=== PATIENT | female | born 1985 | race Caucasian/White ===

== ENCOUNTER 2024-01-13 14:26 | Outpatient (CLI) | payer BC, SELFPAY | END 2024-01-13 14:27 | disposition home or self-care (01) | LOC: NFLDREF 01-17 23:41 | PROVIDERS: Visit Provider Advanced Practice Midwife | DX: Z34.91 Encounter for supervision of normal pregnancy, unspecified, first trimester (principal); O09.521 Supervision of elderly multigravida, first trimester; Z3A.10 10 weeks gestation of pregnancy | CPT/HCPCS: 76801; 86592; 86703; 86704; 86706; 86762; 86787; 86803; 86850; 86900; 86901; 87086; 87340 ==

== ENCOUNTER 2024-03-16 10:12 | Outpatient (CLI) | payer BC, SELFPAY ==
--- NOTE | 2024-03-16 10:15 | CRLHL7_ITS ---
For Patients: As a result of the Century Cures Act, medical imaging exams and procedure reports are released immediately into your electronic medical record. You may view this report before your referring provider. If you have questions, please contact your health care provider. OBSTETRICAL ULTRASOUND LMP: 11/04/2023. LUCIEN by LMP: 07/31/2024. GA: 19 weeks 0 days. Gestation: Mackey. INDICATION: Survey. Advanced Maternal Age. Cervix: Visualized. Length of Closed Cervix: 4.0 cm. Position: Multiple Positions. Amniotic Fluid: 2.9 cm SDP (N: ? 2x 1 cm) Placenta Technique: TA. Placenta Position: Posterior. Placenta Tip to Internal Os: 2.9 cm. Umbilical Cord: 3-vessl cord. Placental Insertion: Marginal (1.8 cm). ANATOMY (Observed) Cerebellum: 1.9 cm, 19 weeks 2 days. Cisterna Magna: 6.7 mm. Nuchal Fold: 4.2 mm. Lateral Ventricles: 6.8 mm. CSP. Midline Falx. Choroid Plexus: Suboptimally Seen. Spine: Suboptimally Seen. Stomach Abdominal Cord Insertion. Urinary Bladder. Kidneys. Diaphragm: Suboptimally Seen. Nose/Lips. Orbital View. Profile. Upper/Lower Extremities: Hands: Suboptimally Seen. Feet. 4-Chamber Heart. LVOT/RVOT. 3VTV. BIOMETRY BPD: 4.6 cm, 20 weeks 0 days. HC: 16.9 cm, 19 weeks 4 days. AC: 15.7 cm, 20 weeks 6 days. FL: 3.0 cm, 19 weeks 3 days. FL/AC Ratio: 19.3 percent. HC/AC Ratio: 1.1. EFW: 332 grams, 0 pounds 12 ounces. Age by this US: 19 weeks 6 days. LUCIEN by this US: 08/04/2024. Percentile by LUCIEN: 95.7 percent. Heart Rate: 144 bpm. COMMENTS: Marginal cord insertion into the placenta is 1.8 cm from the edge of the placenta. There is a 0.8 x 0.8 x 0.6 cm left-sided choroid plexus cyst. The placenta edge to the internal os is 2.9 cm. IMPRESSION: 1. Single live intrauterine gestation. 2. There is a 0.8 cm left-sided choroid plexus cyst present. 3. There is otherwise no gross anomalies visualized; however, the spine, the diaphragm and hands are suboptimally seen. 4. Marginal cord insertion 1.8 cm from the edge of the placenta. Kinjal Haro M.D. Diagnostic/Breast Radiologist [email or web address] ACOSTA/leonard / DW/Dictated by: Kinjal Haro MD @ 03/18/2024 4:06:00 PM (Electronically Signed)
== END 2024-03-16 10:13 | disposition home or self-care (01) ==
LOC: US 10:13
PROVIDERS: Visit Provider Advanced Practice Midwife
DX: Z34.92 Encounter for supervision of normal pregnancy, unspecified, second trimester (principal); O35.03X0 Maternal care for (suspected) central nervous system malformation or damage in fetus, choroid plexus cysts, not applicable or unspecified; Z3A.19 19 weeks gestation of pregnancy
CPT/HCPCS: 76805

== ENCOUNTER 2024-05-11 09:58 | Outpatient (CLI) | payer BC, SELFPAY ==
--- NOTE | 2024-05-11 10:15 | CRLHL7_ITS ---
For Patients: As a result of the Century Cures Act, medical imaging exams and procedure reports are released immediately into your electronic medical record. You may view this report before your referring provider. If you have questions, please contact your health care provider. INDICATION: missing anatomy (hands, diaphragm, spine), marginal cord insertion, choroid plexus cyst, AMA COMPARISON: 03/16/2024 TECHNIQUE: Real time pablo scale imaging of the fetus was performed as well as color Doppler analysis of the umbilical vessels. FINDINGS/IMPRESSION: Sonographic imaging demonstrates a single living intrauterine gestation. Fetus demonstrates a regular cardiac rate of 149 beats per minute. Fetus has a vertex position. The placenta lies posterior. Amniotic fluid volume appears normal. Single deepest vertical pocket: 6.7 cm. The cervix is closed and measures 3.2 cm in length. The composite ultrasound gestational age is calculated at 28 weeks 4 days with an estimated sonographic due date of 07/30/2024. The estimated weight is 1250 grams which lies at the 93rd %. The following biometric measurements were obtained: Biparietal diameter: 7.0 cm/28 weeks 2 days 79th% Head circumference: 26.5 cm/28 weeks 6 days 81st% Abdominal circumference: 25.1 cm/29 weeks 2 days 95th% Femur length: 5.2 cm/27 weeks 4 days 51st% The HC/AC ratio measures: 1.06 range (1.00-1.21) Normal hands and diaphragm. Normal stomach and three-vessel cord. Normal bladder. Kidneys are unremarkable. Normal aortic arch, three-vessel view and IVC. No choroid plexus cyst. The cervical, thoracic and lumbar spine are well visualized and appear normal. Sonographic gestational age 28 weeks 4 days and sonographic due date of 07/30/2024. Sonographic age 11 days ahead of the clinical age. Dictated by Ashish Robbins MD @ 05/11/2024 11:20:13 AM (Electronically Signed)
== END 2024-05-11 09:59 | disposition home or self-care (01) ==
LOC: US 09:59
PROVIDERS: Visit Provider Advanced Practice Midwife
DX: O43.192 Other malformation of placenta, second trimester (principal); O09.522 Supervision of elderly multigravida, second trimester; Z3A.27 27 weeks gestation of pregnancy
CPT/HCPCS: 76816; 86592

== ENCOUNTER 2024-05-17 08:21 | Outpatient (CLI) | payer BC, SELFPAY | END 2024-05-17 08:22 | disposition home or self-care (01) | LOC: NFLDREF 05-21 03:34 | PROVIDERS: Visit Provider Midwife | DX: R73.09 Other abnormal glucose (principal) | CPT/HCPCS: 82951; 82952 ==

== ENCOUNTER 2024-06-14 10:19 | Outpatient (CLI) | payer BC, SELFPAY | END 2024-06-14 10:20 | disposition home or self-care (01) | LOC: US 10:19 | PROVIDERS: Visit Provider Advanced Practice Midwife | DX: O24.419 Gestational diabetes mellitus in pregnancy, unspecified control (principal); O09.523 Supervision of elderly multigravida, third trimester; Z3A.33 33 weeks gestation of pregnancy | CPT/HCPCS: 76816 ==

== ENCOUNTER 2024-07-13 12:17 | Outpatient (CLI) | payer BC, SELFPAY ==
--- NOTE | 2024-07-13 12:15 | CRLHL7_ITS ---
For Patients: As a result of the Cures Act, medical imaging exams and procedure reports are released immediately into your electronic medical record. You may view this report before your referring provider. If you have questions, please contact your health care provider. OB ULTRASOUND FOLLOW-UP LIMITED, 07/13/2024 CLINICAL HISTORY: GDM, marginal cord insertion. COMPARISON: 06/14/2024, 05/11/2024, 03/16/2024. TECHNIQUE: Real time pablo scale imaging of the fetus was performed transabdominally. FINDINGS: Gestation: Single. LUCIEN by LMP: 08/10/2024. GA: 36 weeks 0 days. Cervix: Not visualized. Positioning: Vertex. Amniotic Fluid: 6.1 cm SDP. Placenta: Technique: TA. Placenta Position: Posterior. Dopplers: Heart Rate: 145 bpm. Biometry: BPD: 9.2 cm, 37 weeks 3 days. 89% HC: 32.8 cm, 37 weeks 2 days. 50% AC: 33.8 cm, 37 weeks 5 days. 94% FL: 7.0 cm, 36 weeks 0 days. 44% FL/AC: 20.73% MURPHY/AC: 0.97. EFW: 3146 grams, 6 lb 15 oz. Age by this US: 37 weeks 1 day. LUCIEN by this US: 08/02/2024. Percentile by LUCIEN: 82% IMPRESSION: 1. Sonographic gestational age 37 weeks 1 day and sonographic due date 08/02/2024. Sonographic age is 8 days ahead of the clinical age. 2. Estimated weight 82nd percentile. Abdominal circumference 94th percentile. Ashish Robbins M.D. Diagnostic Radiologist [email or web address] Transcribed: 1:52 pm DW/Dictated by: Ashish Robbins MD @ 07/13/2024 1:06:00 PM (Electronically Signed)
== END 2024-07-13 12:18 | disposition home or self-care (01) ==
LOC: US 12:18
PROVIDERS: Visit Provider Advanced Practice Midwife
DX: O24.410 Gestational diabetes mellitus in pregnancy, diet controlled (principal); O43.193 Other malformation of placenta, third trimester; O09.523 Supervision of elderly multigravida, third trimester; Z3A.37 37 weeks gestation of pregnancy
CPT/HCPCS: 76816

== ENCOUNTER 2024-07-13 14:34 | Outpatient (CLI) | payer BC, SELFPAY ==
[2024-07-14 14:16] LABS: Strep B DNA Probe Negative (Negative)
[2024-07-14 14:18] LABS: Strep B Susceptibility Needed? No
== END 2024-07-13 14:35 | disposition home or self-care (01) ==
LOC: NFLDREF 14:34
PROVIDERS: Visit Provider Advanced Practice Midwife
DX: Z34.93 Encounter for supervision of normal pregnancy, unspecified, third trimester (principal); Z3A.36 36 weeks gestation of pregnancy
CPT/HCPCS: 87081; 87653

== ENCOUNTER 2024-07-26 11:13 | Inpatient (IN) | payer BC, SELFPAY ==
[2024-07-26] VITALS (32 sets, daily range): BP systolic 102–140; BP diastolic 56–90; PULSE 57–86; RESP 16; TEMP 36.6–37.2; O2SAT 98–100; BMI 22.1
[2024-07-26 11:00] LABS: Amnisure Rom* POSITIVE
--- NOTE | 2024-07-26 11:13 | W.PM.LDBA ---
Subjective History of Present Illness Date Seen: 07/26/24 Narrative: Patient is being admitted to Labor and Delivery for SROM at [facility]. She is a 38 year old at 37 6/7 weeks gestation. Her full history and physical was dictated by Dr. Izzy Keane on 07/20/24. Please see this for details. She has GDMA1 well controlled, AMA, marginal cord insertion, hx of vacuum delivery. A choroid plexus cyst was once identified, but since resolved. She reports small amount of clear fluid at 0745 with good movement and no vaginal bleeding. She was not bhargavi initially but is feeling some mild contractions now. Specific Issues/Plans : Aamir H&P 07/20/24 by Cristhian Keane CNM # GDM, failed 2/4 values Nutrition consult: declines Weekly testing starting at 40 weeks: growth and BPP ordered Growth US every 4 weeks starting at 28 weeks-orders placed for 36 and 40 wks (BPP also at 40wks) ? Delivery recommended 39 0/7-40 6/7 weeks? Has been monitoring BG 4x per day. Begin once daily fasting BG on 07/13/24 (36 weeks) consider doing BID next visit for reassurance with any concerns # Marginal cord insertion Growth US at 28 weeks: 92% Growth US at 32 weeks: 77% Growth US at 36 weeks: 82% Growth US at 40 weeks: ordered #Hx of vacuum with 1st For bleeding and NRFHT #AMA Genetic screening: [id number] ordered Level II US: Declined # Choroid Plexus Cyst, left-resolved Ultrasounds Anatomy US 03/16/2024 IMPRESSION: 1. Single live intrauterine gestation. 2. There is a 0.8 cm left-sided choroid plexus cyst present. 3. There is otherwise no gross anomalies visualized; however, the spine, the diaphragm and hands are suboptimally seen. 4. Marginal cord insertion 1.8 cm from the edge of the placenta. Follow up US 05/11/2024: Anatomy visualized. Sonographic gestational age 28 weeks 4 days and sonographic due date of 07/30/2024. Sonographic age 11 days ahead of the clinical age. Growth US 06/14/2024 IMPRESSION: 1. Sonographic gestational age 33 weeks 0 days and sonographic due date 08/02/2024. Sonographic age 8 days ahead of the clinical age. 2. Estimated weight 77th percentile. Abdominal circumference 91st percentile. Growth US 07/13/2024 IMPRESSION: 1. Sonographic gestational age 37 weeks 1 day and sonographic due date 08/02/2024. Sonographic age is 8 days ahead of the clinical age. 2. Estimated weight 82nd percentile. Abdominal circumference 94th percentile. Pap due OB - Problem Based A/P Additional Plan (1) Gestational diabetes: Problem details: GM1A Status: Acute (2) Supervision of high risk in third trimester: Status: Acute (3) SROM (spontaneous rupture of membranes): Status: Acute (4) Advanced maternal age in multigravida: Status: Acute (5) History of delivery by vacuum extraction, currently : Status: Acute (6) Marginal insertion of umbilical cord affecting management of mother: Status: Acute (7) Choroid plexus cyst of fetus affecting care of mother, antepartum: Status: Acute Plan ASSESSMENT:?? 39 at 37 6/7 weeks gestation?? complicated by:??[email or web address] well controlled, AMA, marginal cord insertion, hx of vacuum delivery Labor type: Spontaneous, Early labor?? Category 1 FHR pattern.??? Labor complicated by: GDMA1, SROM GBS negative ?? PLAN:?? 1. Routine intrapartum cares as ordered. IV pitocin augmentation offered and declined by patient after review of increased risk of infection after ROM and possible increased risk of with expectant management. Continue with expectant management??per patient request. 2. Monitoring per policy, continuous or intermittent?? 3. Planning unmedicated . Desires water . Consent signed. Hep C negative. Candidate for analgesia of choice.?States also an epidural will be her priority.??She will notify us when that is her desire. 4. Patient encouraged to reposition and ambulate to promote physiologic labor and .??Belly lifts also encouraged. 5.Anticipate ? OB Exam Physical Exam Vital signs: Pulse BP Pulse Ox 86 114/75 98 07/26/24 10:36 07/26/24 10:36 07/26/24 10:36 Narrative: Vitals Reviewed Constitutional:? Alert and oriented x3 HEENT:? Normocephalic, atraumatic Neck:? Supple Lungs:? Clear to auscultation bilaterally Heart:? Regular rate and rhythm, no murmur, rub or gallop Abdomen:? Soft, nontender, and gravid. Vertex by Justin's. Extremities:? No edema or erythema Cervix: deferred. Amnisure +. ROM 0745 small amount, clear. NST: 140 bpm/moderate variability/accelerations present/decelerations absent/q 2-4 min contractions palpating mild
--- NOTE | 2024-07-26 15:20 | PM.OBPNL ---
Subjective Date Seen: 07/26/24 Narrative: Jerilyn is with mild irregular contractions. Good FM. No vaginal bleeding. Her is supporting her at bedside. She is not yet uncomfortable. Objective Exam: Objective: Constitutional: Alert and oriented x3, no distress, coping well Vital signs stable, see nurse documentation Abdomen: gravid, contractions palpate mild with contractions and soft between Cervix:3/70/-1, amniotic membrane palpated, no palpable fluid felt thru the bag. Bag pulled, felt it tear but no fluid return when it did so. Membranes swept with consent. Good bloody show. NST: 140 bpm/moderate variability/accelerations present/decelerations absent/contractions q 11 min, increased frequency after exam to q3-4min. Vital Signs: Last Vital Signs Temp 98.8 F 07/26/24 14:38 Pulse 81 07/26/24 14:38 Resp 16 07/26/24 11:30 BP 118/78 07/26/24 14:38 Pulse Ox 98 07/26/24 10:36 Plan Plan: Labor A/P? ASSESSMENT:?? 39 at 37 6/7 weeks gestation?? complicated by:??[email or web address] well controlled, AMA, marginal cord insertion, hx of vacuum delivery Labor type: Spontaneous, Early labor?? Category 1 FHR pattern.??? Labor complicated by: GDMA1, PROM at term GBS negative ?? PLAN:?? 1. Routine intrapartum cares as ordered. Continue with expectant management??per patient desire 2. Monitoring per policy, continuous or intermittent?? 3. Planning epidural if able 4. Patient encouraged to reposition and ambulate to promote physiologic labor and .?? 5. Anticipate ?
[2024-07-26 15:56] LABS: Basophils Absolute Auto 0.01 K/uL (0.00-0.30); Basophils Percent Auto 0.1 % (0.0-3.0); Eosinophils Absolute Auto 0.03 K/uL (0.00-0.50); Eosinophils Percent Auto 0.4 % (0.0-7.0); Hematocrit 35.2 % (33.0-51.0); Hemoglobin* 11.5 gm/dL (12.0-16.0); Immature Granulocytes Abs Auto 0.05 K/uL (0.00-0.30); Immature Granulocytes Pct Auto 0.6 %; Lymphocytes Percent Auto 17.2 % (20-44); Mean Corpuscular HGB Conc 33 gm/dL (32-36); Mean Corpuscular Hemoglobin 27 pg (26-34); Mean Corpuscular Volume 82 fL (80-100); Monocytes Percent Auto 8.8 % (0.0-11.0); Neutrophils Percent Auto 72.9 % (42.0-72.0); Platelet Count* 280 K/uL (140-440); RDW Coefficient of Variation % 13.7 % (11.5-15.5); Red Blood Count 4.27 m/uL (4.00-5.20); White Blood Count* 8.56 K/uL (4.50-11.00)
[2024-07-26 15:58] LABS: Slide Review Reflex No
--- NOTE | 2024-07-26 18:59 | PM.OBPNL ---
Subjective Date Seen: 07/26/24 Narrative: Jerilyn is not yet uncomfortable, but does note an occasional irregular contraction. Good movement. She is voiding regularly and has had good intake. Aamir continues to support her at the bedside. Objective Exam: Objective: Constitutional: Alert and oriented x3, no distress, coping well Vital signs stable, see nurse documentation Abdomen: gravid, contractions palpate mild with contractions and soft between Cervix: deferred NST: 145 bpm/moderate variability/accelerations present/decelerations absent/contractions irregular Vital Signs: Last Vital Signs Temp 98.1 F 07/26/24 18:40 Pulse 81 07/26/24 14:38 Resp 16 07/26/24 15:45 BP 118/78 07/26/24 14:38 Pulse Ox 98 07/26/24 10:36 Plan Plan: Labor A/P? ASSESSMENT:?? 39 at 37 6/7 weeks gestation?? complicated by:??GDMA1 well controlled, AMA, marginal cord insertion, hx of vacuum delivery Labor type: Spontaneous, Early labor?? Category 1 FHR pattern.??? Labor complicated by: GDMA1, PROM at term GBS negative ?? PLAN:?? 1. Routine intrapartum cares as ordered. Jerilyn would like to try to induce her labor with a breast pump. Instructions given. She is agreeable to potentially using a low dose pitocin if things don't kick in with the pump. 2. Monitoring per policy, continuous or intermittent?? 3. Planning epidural if able, expectant management of the third stage of labor 4. Patient encouraged to reposition and ambulate to promote physiologic labor and .?? 5. Monitor blood sugars per protocol 6. Anticipate ?
--- NOTE | 2024-07-26 20:47 | PM.OBPNL ---
Subjective Date Seen: 07/26/24 Narrative: Jerilyn is beginning to have regular contractions, now every 4 min. Intensity is increasing and she is feeling like she may want an epidural soon. Pumping for augmentation seems to be working. Her is supportive at bedside. Objective Exam: Objective: Constitutional: Alert and oriented x3, no distress, coping well Vital signs stable, see nurse documentation Abdomen: gravid, contractions palpate moderate with contractions and soft between Cervix: deferred NST: 145 bpm/moderate variability/accelerations present/decelerations absent/contractions q 4-5 min Vital Signs: Last Vital Signs Temp 98.5 F 07/26/24 19:59 Pulse 70 07/26/24 20:01 Resp 16 07/26/24 19:59 BP 123/80 07/26/24 20:01 Pulse Ox 98 07/26/24 10:36 Plan Plan: Labor A/P? ASSESSMENT:?? 39 at 37 6/7 weeks gestation?? complicated by:??[email or web address] well controlled, AMA, marginal cord insertion, hx of vacuum delivery Labor type: Spontaneous, subjectively more active labor?? Category 1 FHR pattern.??? Labor complicated by: GDMA1, PROM at term GBS negative ?? PLAN:?? 1. Routine intrapartum cares as ordered. Continue with pumping for augmentation 2. Monitoring per policy, continuous or intermittent?? 3. Planning epidural if able 4. Patient encouraged to reposition and ambulate to promote physiologic labor and .?? 5. Anticipate ?
[2024-07-26] MEDS: LACTATED RINGERS 1000 ML 1,000 ML 1200 ML IV (21:20)
[2024-07-26] MEDS: LIDOCAINE 2% (PF) 5 ML VIAL EPIDURAL (21:56)
[2024-07-26] MEDS: ROPIVACAINE 0.2% 100 ml 100 ML 12 MG EPIDURAL (21:57)
--- NOTE | 2024-07-26 22:08 | P.ANBPRC_ITS ---
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 Partner: Aamir, Abhijeet Lives with: Two children Pets: none inside Abuse: Denies past/present Special Diet: Denies Ok with a blood transfusion: yes Culture or roman catholic beliefs: Islam RISK FACTORS Exercise Times/wk: Walk/Bike Daiy Hx of Depression and/or Anxiety/other mood disorder: No hx Seat Belt Use: Routinely Smoking: Denies past/present Alcohol/day: Denies while ; socially Caffeine: Not during Drug Use: Denies past/present Chicken Pox: Yes as a child MRSA: Denies What is your current living situation?: I presently have a place to live Problems where you live: no known problems In the past 12 months, utilities in danger of being shut off: no In past 12 months, lack of transportation kept you from medical appts, meetings, work, or getting things needed for daily living: no In the past 12 mos, have been you worried that your food would run out before you had money to buy more?: never true In the past 12 mos, the food you bought just didn't last and you didn't have money to buy more?: never true Smoking Status: Never smoker How often does anyone, including family, friends and others, physically hurt you : never How often does anyone, including family, friends and others, insult or talk down to you: never How often does anyone, including family, friends and others, threaten you with harm: never How often does anyone, including family, friends and others, scream or curse at you: never Meds Home Medications and Allergies Home Medications ?Medication ?Instructions ?Recorded ?Confirmed ?Type cholecalciferol (vitamin D3) 50 50 mcg PO QDAY 01/13/24 07/26/24 History mcg (2,000 unit) capsule magnesium aspart,citrate,oxide 400 mg PO DAILY 01/13/24 07/26/24 History omega 7-lva-qct-fish oil 100 1 cap PO DAILY 01/13/24 07/26/24 History mg-160 mg-1,000 mg capsule (Fish Oil) vit 168-iron 27 mg-folic 1 cap PO DAILY 05/11/24 07/26/24 History acid 800 mcg-omega3 235 mg capsule (One-A-Day -1) cinnamon bark 500 mg capsule 500 mg PO QDAY 05/24/24 07/26/24 History (Cinnamon) Allergies Allergy/AdvReac Type Severity Reaction Status Date / Time No Known Drug Allergies Allergy Verified 07/26/24 16:30 Results Labs Labs: Laboratory Results - last 24 hr 07/26/24 07/26/24 10:34 15:50 WBC 8.56 RBC 4.27 Hgb 11.5 L Hct 35.2 MCV 82 MCH 27 MCHC 33 RDW Coeff of Justine 13.7 Plt Count 280 Neut % (Auto) 72.9 H Lymph % (Auto) 17.2 L Cataño % (Auto) 8.8 Eos % (Auto) 0.4 Baso % (Auto) 0.1 Neut # (Auto) 6.20 Lymph # (Auto) 1.50 Cataño # (Auto) 0.80 Eos # (Auto) 0.03 Baso # (Auto) 0.01 Abs Immat Gran (auto) 0.05 Imm/Tot Granulo (auto) 0.6 Membrane Rupture POSITIVE Vital Signs Vital Signs: Last Vital Signs Temp 98.1 F 07/26/24 20:58 Pulse 69 07/26/24 22:03 Resp 16 07/26/24 19:59 BP 118/73 07/26/24 22:03 Pulse Ox 100 07/26/24 21:55 Weight: 69.808 kg Height: 177.8 cm Anesthesia Procedures Epidural Insertion Patient Location: OB Start Time: 21:15 Stop Time: 22:15 Start Date: 07/26/24 Stop Date: 07/26/24 Reason for Block: procedure for pain Patient Position: sitting Performed By: Renetta Downey Preanesthetic Checklist: IV checked, site marked, risks and benefits discussed, monitors and equipment checked, pre-op evaluation and anesthesia consent Prep: chlorhexidine gluconate Monitoring: blood pressure monitoring, continuous pulse oximetry and heart rate Approach: midline Vertebral Space: lumbar (1-5) Epidural Technique: PRASANNA saline Needle Type: Tuohy needle Injection Technique: continuous catheter Needle gauge: 17 Needle Length (cm): 10 cm Needle Insertion Depth (cm): 5 Catheter Gauge: 19 Catheter Type: multi-orifice Catheter at skin depth (cm): 15 Test Dose Result: negative and lidocaine 1.5% with epinephrine 1 to 200,000
[2024-07-26] MEDS: LACTATED RINGERS 1000 ML 1,000 ML 125 ML IV (23:39)
[2024-07-27] VITALS (46 sets, daily range): BP systolic 99–183; BP diastolic 55–126; PULSE 49–110; RESP 16–18; TEMP 36.6–37.2; O2SAT 97–99
--- NOTE | 2024-07-27 00:03 | PM.OBPNL ---
Subjective Date Seen: 07/27/24 Narrative: Jerilyn is doing well. She has received her epidural and is comfortable. She does note some shaking. Aamir continues to be supportive. Objective Exam: Objective: Constitutional: Alert and oriented x3, no distress, coping well Vital signs stable, see nurse documentation Abdomen: gravid, contractions palpate moderate with contractions and soft between Cervix: 6/90/0 per nursing NST: 140 bpm/moderate variability/accelerations present/decelerations absent/contractions 3-5 min Vital Signs: Last Vital Signs Temp 97.9 F 07/26/24 23:17 Pulse 67 07/26/24 23:51 Resp 16 07/26/24 23:17 BP 103/64 07/26/24 23:51 Pulse Ox 100 07/26/24 21:55 Plan Plan: ASSESSMENT:?? 39 at 38 0/7 weeks gestation?? complicated by:??[email or web address] well controlled, AMA, marginal cord insertion, hx of vacuum delivery Labor type: Spontaneous, subjectively more active labor?? Category 2 FHR pattern.??? Labor complicated by: GDMA1, PROM at term GBS negative ?? PLAN:?? 1. Routine intrapartum cares as ordered. Initiate pit per protocol. Pt prefers to start and leave at 2 mu for a while. 2. Monitoring per policy, continuous 3. Continue epidural management 4. Patient encouraged to reposition to promote physiologic labor and .?? 5. Anticipate ?
--- NOTE | 2024-07-27 00:59 | PM.OBPNL ---
Subjective Date Seen: 07/27/24 Objective Exam: Objective: Constitutional: Alert and oriented x3, [mild/moderate/severe] distress, coping well Vital signs stable, see nurse documentation Abdomen: gravid, contractions palpate moderate with contractions and soft between Cervix: 8-9 cm/90%/-1 station/vertex NST: 130 bpm/moderate variability/accelerations present/decelerations -variables present/contractions q3-5 min Vital Signs: Last Vital Signs Temp 98.1 F 07/27/24 00:14 Pulse 88 07/27/24 00:50 Resp 16 07/26/24 23:17 BP 111/73 07/27/24 00:50 Pulse Ox 100 07/26/24 21:55 Plan Plan: ASSESSMENT:?? 39 at 37 6/7 weeks gestation?? complicated by:??[email or web address] well controlled, AMA, marginal cord insertion, hx of vacuum delivery Labor type: Spontaneous, active labor?? Category 1 FHR pattern.??? Labor complicated by: GDMA1, PROM at term GBS negative ?? PLAN:?? 1. Routine intrapartum cares as ordered. Continue expectant management and start pit only if needed and able 2. Monitoring per policy, continuous 3. Continue epidural management 4. Patient encouraged to reposition to promote physiologic labor and .?? 5. Anticipate ?
--- NOTE | 2024-07-27 03:56 | PM.OBPNL ---
Subjective Date Seen: 07/27/24 Narrative: Jerilyn has not been resting. She has been changing positions and is comfortable with her epidural. Objective Exam: Objective: Constitutional: Alert and oriented x3, coping well Vital signs stable, see nurse documentation Abdomen: gravid, contractions palpate mild with contractions and soft between Cervix: 8.5 cm/90%/-1 station/vertex, LOP NST: 120 bpm/moderate variability/accelerations present/recurrent variable decelerations/contractions q4-5 min, Baby feel LOP, no descent Vital Signs: Last Vital Signs Temp 98.2 F 07/27/24 03:28 Pulse 69 07/27/24 03:52 Resp 16 07/27/24 03:28 BP 119/86 07/27/24 03:52 Pulse Ox 100 07/26/24 21:55 Plan Plan: Labor A/P? ASSESSMENT:?? 39 at 38 0/7 weeks gestation?? complicated by:??[email or web address] well controlled, AMA, marginal cord insertion, hx of vacuum delivery Labor type: Spontaneous, Early labor?? Category 2 FHR pattern.??? Labor complicated by: GDMA1, PROM at term GBS negative ?? PLAN:?? 1. Routine intrapartum cares as ordered. Initiate pitocin per protocol. 2. Monitoring per policy, continuous 3. Continue epidural anesthesia 4. Patient encouraged to reposition to promote physiologic labor and .?? 5. Anticipate ?
[2024-07-27] MEDS: OXYTOCIN 30 unit/500 ML in NS 30 UNIT/500 ML BAG IVPB (04:09)
[2024-07-27] MEDS: LACTATED RINGERS 1000 ML 1,000 ML 500 ML IV (04:17)
--- NOTE | 2024-07-27 05:52 | PM.OBPNL ---
Subjective Date Seen: 07/27/24 Narrative: Feeling lots of increased pressure. Objective Exam: Objective: Constitutional: Alert and oriented x3, mild distress, coping well Vital signs stable, see nurse documentation Abdomen: gravid, contractions palpate moderate with contractions and soft between Cervix: 8.5 cm/90%/-1 station/vertex NST: 110 bpm/moderate variability through out/accelerations present/recurrent variable decelerations/contractions q2 min, lots of position changes. Suspect tight nuchal cord. Pit increased to 2 mu/min. scalp stimulation produced an increase in FHR. Vital Signs: Last Vital Signs Temp 98 F 07/27/24 05:29 Pulse 75 07/27/24 05:38 Resp 16 07/27/24 03:28 BP 122/82 07/27/24 05:38 Pulse Ox 100 07/26/24 21:55 Plan Plan: Labor A/P? ASSESSMENT:?? 39 at 38 0/7 weeks gestation?? complicated by:??[email or web address] well controlled, AMA, marginal cord insertion, hx of vacuum delivery Labor type: Spontaneous, Early labor?? Category 2 FHR pattern.??? scalp stim reaction reassuring Labor complicated by: [email or web address], PROM at term GBS negative ?? PLAN:?? 1. Routine intrapartum cares as ordered. Continue to titrate pitocin despite deep variables since no descent. MD will be notified for back up and surgery prepped as much as possible. Have been reviewing with parents throughout night suspicions about wh and why things are happening. Reviewed that I cannot guarantee that this baby will be able to safely be delivered vaginally. 2. Monitoring per policy, continuous. 3. Continue epidural anesthesia 4. Patient encouraged to reposition to promote physiologic labor and .?? 5. Anticipate ?
[2024-07-27] MEDS: ROPIVACAINE 0.2% 100 ml 100 ML 12 MG EPIDURAL (06:04)
[2024-07-27] MEDS: OXYTOCIN 30 unit/500 ML in NS 30 UNIT/500 ML BAG 325 UNIT IVPB (07:30)
--- NOTE | 2024-07-27 07:39 | W.PM.OBVAGDE ---
OB Procedure Vag Delivery Mother Details Mother Details: The patient is a 38 year-old, 5, Now Para 3023, admitted on 07/26/24 at 37weeks 6 Days gestation for PROM at term. Admission Date: 07/26/24 Additional Details Amniotic Membrane Status: SROM Amniotic Membrane Rupture Date: 07/26/24 Amniotic Membrane Rupture Time: 07:45 Amniotic Membrane Fluid Description: Clear Analgesia/Anesthesia Type: Epidural Waterbirth: No Pitcoin: Yes Intrapartal Events: Labor Augmentation, Distress and ROM >18 Hours Labor Onset: 22:15 Complete: 06:55 Pushin:55 Heart: heart tones during first stage were category 2 with recurrent variable decelerations with baseline 120s, then 110s. Moderate variability remained thru out. Dilation of the cervix stalled in the transition phase with lack of descent prompting us to suspect a cord was holding the baby up. Cat 2 was managed with position changes, and fluid boluses. Moderate variability remained through out and compromise was consistently tested with scalp stimulation that produced an increase in the heart rate. With protracted dilation and descent, pitocin augmentation was necessary in order to either progress toward delivery or the fetus to declare that it would not further tolerate labor. Approximately 20 minutes prior to , the heart tracing became category 3 with minimal to no variability and rising baseline with deeper, longer variables. We had already began to prep for possible with staff a facilities so staff were en route, however, a VE revealed a sudden progression of labor to anterior lip. of baby encouraged and anterior lip encouraged to recede. Pt asked to push and she very effectively produced rapid descent. Extra staff were ready for resuscitation. Tones the last 20 minutes had increasing baseline with minimal to no variability. Pit, which had been titrated up to 3 mu/min, was shut off. Baby descended rapidly and was born with a vigorous cry. See further details in delivery summary. Delivery Details Delivery Date: 07/27/24 Delivery Time: 06:59 Route of delivery: Infant Gender: Male Infant Viability: Alive; Heart Rate Present Position at Delivery: OA Delivery Details: Patient was admitted for PROM at term and progressed with augmentation. SROM noted at 0745am with clear fluid. Patient was complete at 0655 and pushing at 0655. of a viable male at 0659 in semifowler's. Vertex delivered OA. One nuchal cord that was unable to be slipped. Baby delivered through without complication. No shoulder dystocia. Body delivered easily and without incident. Infant passed to mothers abdomen with a vigorous cry after he was wiped and stimulated at the bottom of the bed. Cord was clamped and cut at approximately 5 minutes. APGARS were 8 at one minute and 9 at five minutes respectively. Mouth was bulb suctioned. Intact placenta with a 3 vessel cord delivered spontaneously at 0705. Fundus firm. Perineum intact. QBL 348 cc. Mother and baby stable; mother plans to breastfeed. weight 7#.? Of note, during epidural placement, one elevated BP found, but not sustained, normal repeat 2 min later. This elevated BP was not found to be accurate and disregarded. Another BP during the middle of the contraction was also no counted as repeat was normal. So initial finding was disregarded. She does not meet criteria for GHTN. 1 Minute Interval Total Score: 8 5 Minute Interval Total Score: 9 Additional Details Shoulder Dystocia: No Placenta Delivery Time: 07:05 Placental Delivery Description: Spontaneous Procedure Done: Global Blood Loss: 348 Laceration: None Episiotomy Description: None Blood Loss Measurement Type: QBL Bakri Used: No Sponge/Need Count Correct: Yes Cord Vessel Description: 3 Vessels and Nuchal Cord Event Summary Status: Mother and infant were stable after delivery. Disposition: floor
[2024-07-27] MEDS: ACETAMINOPHEN 500 MG TABLET 1000 MG PO ×3 (09:03→21:23)
[2024-07-27] MEDS: IBUPROFEN 600 MG TABLET PO ×2 (11:11→17:53)
--- NOTE | 2024-07-27 11:48 | PM.ANPOST ---
Post Anesthesia Note Post Anesthesia Note Patient seen: Inpatient Respiratory Status: adequate Cardiovascular Status: adequate Mental Status: baseline Pain: adequate Temp: baseline Anesthetic awareness: N/A Complications: none Follow care: none
[2024-07-28 00:08] VITALS: BP 114/74; PULSE 77; RESP 18; O2SAT 98
[2024-07-28] MEDS: IBUPROFEN 600 MG TABLET PO (00:16)
[2024-07-28 04:17] VITALS: BP 115/75; PULSE 74; RESP 18; TEMP 36.9; O2SAT 98
[2024-07-28] MEDS: ACETAMINOPHEN 500 MG TABLET 1000 MG PO (04:19)
[2024-07-28 06:22] LABS: Hemoglobin* 9.8 gm/dL (12.0-16.0)
[2024-07-28 08:58] LABS: Glucose* 73 mg/dL (60-115)
--- NOTE | 2024-07-28 10:22 | PM.OBDSVD1 ---
DS: Providers Provider Date Seen: 07/28/24 Date of admission: 07/26/24 11:13 Primary care physician: Not a Local Provider Admitting Clinician: Mary Cesar CNM Attending Physician on discharge: Kelsey Giron CNM DS: Diagnosis Discharge Diagnosis (1) care and examination immediately after delivery: Status: Acute (2) Gestational diabetes: Status: Acute Problem details: GM1A (3) Lactating mother: Status: Acute Exam Narrative: Exam Narrative: GENERAL APPEARANCE:? normal affect, alert, no distress MOOD:? appropriate CHEST:? clear to auscultation HEART:? regular rate and rhythm ABDOMEN:? soft, non-tender the uterine fundus is At Umbilicus, Midline and is appropriate for the stage of recovery. PERINEUM:? mild edema of the perineum. EXTREMITIES:? normal and no edema Const: Vital Signs, click to edit/add: Vital Signs - 24 hr 07/27/24 13:00 07/27/24 15:36 07/27/24 19:39 Temperature 98.2 F 98.0 F Pulse Rate [Pulse Oximeter] 70 69 71 Respiratory Rate 16 18 18 Blood Pressure [Ri ght Arm] 119/72 126/77 132/83 Pulse Oximetry 97 97 99 Oxygen Delivery Me thod Room Air Room Air Room Air 07/28/24 00:08 07/28/24 04:17 Temperature 98.4 F Pulse Rate [Pulse Oximeter] 77 74 Respiratory Rate 18 18 Blood Pressure [Ri ght Arm] 114/74 115/75 Pulse Oximetry 98 98 Oxygen Delivery Me thod Room Air Room Air Documenting provider has reviewed patient's vital signs: yes OB - DS: Summary Hospital Course Hospital Course: Jerilyn is a 38 y.o. G 5 P 3 who was admitted to [facility] for spontaneous onset of labor. ?She had a NVD that was uncomplicated. The patient feels well. ?The pain is well controlled with current medications. ?She has no new complaints. ?She is breast feeding and reports things are going well. the patient has done well.? Vitals have been stable.? She has remained afebrile.? Has a good appetite, is tolerating a general diet. ?She is voiding without difficulty.? She is passing gas and has not had a bowel movement.? She is ambulating and denies any dizziness.? Has small amount of rubra lochia. She is planning NFP for prevention. Problems: Anemia Discharge home with baby.? Follow up in 2 weeks and 6 weeks.? , may see if needed? Hgb 9.8. Iron supplement ordered orally every other day?? For pain control of perineum, breast and pelvic pain, take 600 mg Ibuprofen every 6 hours as needed by mouth or 1000 mg acetaminophen (Tylenol) every 6 hours by mouth as needed. You can alternate these so you are taking something every 3 hours as needed. A heating pad can also be used for your abdomen or breasts. You may also take docusate sodium up to twice daily to soften your stools and help to prevent constipation. You may wean off of it when your stools return to normal.? Peripartum Data delivery method: Vaginal [place] Gender: Male Status at Discharge Functional status at discharge: independent ambulation Overall status at discharge: patient is progressing back to baseline Time Spent with Patient Time attestation: Total time spent providing and/or coordinating discharge services: Time spent: Less than 30 minutes Discharge Plan Discharge Disposition: Home, Self-Care Date of Admission: 07/26/24 11:13 Attending Provider on Discharge: Kelsey Giron Primary Care Provider: Provider,Not a Local Condition: Stable Anticipated Discharge Date/Time: 07/28/24 12:00 Discharge Medications: New acetaminophen 500 mg Tablet 1,000 mg PO Q6H PRNQty: 0 0RF docusate sodium 100 mg Capsule 100 mg PO DAILY Qty: 0 0RF ibuprofen 600 mg Tablet 600 mg PO Q6H PRNQty: 0 0RF Continued magnesium aspart,citrate,oxide 400 mg magnesium capsule 400 mg PO DAILY cholecalciferol (vitamin D3) 50 mcg (2,000 unit) capsule 50 mcg PO QDAY Fish Oil 100-160-1,000 mg capsule 1 cap PO DAILY cinnamon bark [Cinnamon] 500 mg capsule 500 mg PO QDAY One-A-Day -1 27 mg iron- 800 mcg-235 mg capsule 1 cap PO DAILY Discontinued (DME) lancets Misc See Rx Instructions .MEDSUPPLY Qty: 100 3RF Rx Instructions: Test blood sugar 4 times daily. (DME) Test Strips Misc See Rx Instructions .MEDSUPPLY Qty: 100 3RF Rx Instructions: Test blood sugar 4 times daily. (DME) Blood Glucose Meter Misc See Rx Instructions .MEDSUPPLY Qty: 1 0RF Rx Instructions: As directed Discharge Orders: Discharge Order (Routine); Ordered 07/28/24 Ordered By: Kelsey Giron Patient Education: OB Over the Counter Medication Information, OB Vaginal/Breast Feeding Additional Instructions: Discharge instructions were reviewed with the patient including signs and symptoms of infection and home going medications Nothing vaginally for 6 weeks: no tampons or intercourse Do not drive while taking narcotic pain medication(s) Off Work or School for 8 weeks 2-week visit: discuss infant feeding concerns, review control options and screen for anxiety/depression. 6-week visit for an annual exam. consultation services are available to all mothers and babies for the first year after delivery.? To make an appointment, please call [phone]. Activity Level: Activity as Tolerated Discharge Diet: Regular Follow Up Appointments: [facility] [Provider Group] Forms: MyHealth Info Instructions
[2024-07-28 11:49] LABS: Rapid Plasma Reagin (RPR) Non Reactive (Non Reactive)
== END 2024-07-28 12:45 | disposition home or self-care (01) | DRG 560 ==
LOC: OB OUT 11:13 → OB 11:13
PROVIDERS: Advanced Practice Midwife; Admitting Provider Midwife; Visit Provider Midwife
DX: O42.02 Full-term premature rupture of membranes, onset of labor within 24 hours of rupture (principal); O24.429 Gestational diabetes mellitus in childbirth, unspecified control; O76 Abnormality in fetal heart rate and rhythm complicating labor and delivery; O43.193 Other malformation of placenta, third trimester; R03.0 Elevated blood-pressure reading, without diagnosis of hypertension; Z3A.37 37 weeks gestation of pregnancy; Z37.0 Single live birth
CPT/HCPCS: 01967; 36415; 82947; 82950; 84112; 85018; 85025; 86592; 94761; A9270; J2371; J2795; J7120